=== PATIENT | female | born 1985 | race Two or more races ===

== ENCOUNTER 2021-12-26 11:45 | Inpatient (IN) | payer MEDICAID ==
[~2021-12-26] VITALS: Ht 172.7 cm; Wt 102.7 kg
[2021-12-26] MEDS ORDERED: MORPHINE SULFATE 4 MG/ML SYR/VIAL IV ONE (12:00)
[2021-12-26] MEDS ORDERED: ONDANSETRON HCL 4 MG/2 ML VIAL IV ONE (12:00)
[2021-12-26] MEDS ORDERED: PANTOPRAZOLE 40 MG/10 ML VIAL INJ IV ONE ×2 (12:00→17:15)
[2021-12-26] MEDS ORDERED: SODIUM CHLORIDE 0.9% 1,000 ML IVB ONE (12:00)
[2021-12-26 12:34] LABS: Basophils # (auto) 0.1 10 ^3/uL (0-0.2); Basophils % (auto) 1.3 % (0.0-2.0); Eosinophils # (auto) 0 10 ^3/uL (0-0.8); Eosinophils % (auto) 0.3 % (0.0-7.0); Hematocrit 41.6 % (36.0-46.0); Lymphocytes # (auto) 1.7 10 ^3/uL (0.4-5.4); Lymphocytes % (auto) 18.4 % (10.0-50.0); Mean Corpuscular Hemoglobin 31.2 pg (28.0-32.0); Mean Corpuscular Hgb Conc. 33.8 g/dL (32.0-36.0); Mean Corpuscular Volume 92.3 fL (80.0-100.0); Monocytes # (auto) 0.5 10 ^3/uL (0-1.3); Monocytes % (auto) 5.5 % (0.0-12.0); Neutrophils # (auto) 6.9 10 ^3/uL (1.6-8.6); Neutrophils % (auto) 74.5 % (37.0-80.0); Red Cell Distribution Width 13.3 % (11.8-14.3); White Blood Cell 9.2 10^3/uL (4.4-10.8)
[2021-12-26 12:51] LABS: Urine Bacteria FEW /hpf (None Seen); Urine Blood Negative /uL (Negative); Urine Mucus FEW (None Seen); Urine WBC 4 /hpf (0 - 5)
[2021-12-26] MEDS ORDERED: cefTRIAXone 1GM/50ML D5W 50 ML IV ONE (13:15)
[2021-12-26 14:08] LABS: INR 1.03 (0.9-1.15); Partial Thromboplastin Time 29.8 sec (24.6-33.4)
[2021-12-26 14:13] LABS: Calcium 9.2 mg/dL (8.5-10.1); Potassium 4.1 mmol/L (3.5-5.1)
[2021-12-26 14:16] LABS: BUN/Creatinine Ratio 9.2; Bilirubin, Total 0.3 mg/dL (0.2-1.0)
[2021-12-26] MEDS ORDERED: SODIUM CHLORIDE 0.9% 1,000 ML IV ONE (17:15)
[2021-12-26 17:48] LABS: Cholesterol 159 mg/dL (< 200)
[2021-12-26 17:51] LABS: HDL Cholesterol 48 mg/dL (40-59); LDL Cholesterol 116 mg/dL (< 100); Triglycerides 81 mg/dL (< 150)
[2021-12-26] MEDS: MORPHINE SULFATE INJ 2 MG/ml SYRG IV PRN ×2 (18:09→20:18)
[2021-12-26] MEDS ORDERED: ACETAMINOPHEN 325 MG TAB PO ONE (18:33)
[2021-12-26] MEDS: ACETAMINOPHEN 325 MG TAB PO PRN (18:34)
[2021-12-26] MEDS: ONDANSETRON HCL 4 MG/2 ML VIAL IV PRN (20:17)
[2021-12-26] MEDS ORDERED: LOS25T PO (22:30)
[2021-12-26] MEDS ORDERED: ESCI-28 PO (22:30)
[2021-12-26] MEDS ORDERED: ESCI10TA PO (22:30)
[2021-12-27] VITALS (7 sets, daily range): BP systolic 122–137; BP diastolic 68–85
[2021-12-27] MEDS: ACETAMINOPHEN 325 MG TAB PO PRN ×3 (01:49→17:07)
[2021-12-27 08:50] LABS: Basophils # (auto) 0.1 10 ^3/uL (0-0.2); Eosinophils # (auto) 0.1 10 ^3/uL (0-0.8); Eosinophils % (auto) 1.3 % (0.0-7.0); Hematocrit 38.2 % (36.0-46.0); Hemoglobin 12.8 g/dL (12.2-16.2); Lymphocytes % (auto) 32.1 % (10.0-50.0); Mean Corpuscular Hemoglobin 30.8 pg (28.0-32.0); Mean Corpuscular Hgb Conc. 33.4 g/dL (32.0-36.0); Mean Corpuscular Volume 92.3 fL (80.0-100.0); Monocytes # (auto) 0.3 10 ^3/uL (0-1.3); Monocytes % (auto) 4.4 % (0.0-12.0); Neutrophils # (auto) 3.8 10 ^3/uL (1.6-8.6); Neutrophils % (auto) 61.2 % (37.0-80.0); Nucleated Red Blood Cells % 0.1 %; Red Blood Cells 4.14 10^6/uL (4.0-5.20); White Blood Cell 6.2 10^3/uL (4.4-10.8)
[2021-12-27] MEDS: cefTRIAXone 1GM/50ML D5W 50 ML IV SCH (08:50)
[2021-12-27] MEDS: MORPHINE SULFATE INJ 2 MG/ml SYRG IV PRN ×2 (08:51→20:24)
[2021-12-27] MEDS: PANTOPRAZOLE 40 MG/10 ML VIAL INJ IV SCH (08:51)
[2021-12-27 09:11] LABS: Potassium 3.9 mmol/L (3.5-5.1)
[2021-12-27 09:23] LABS: Albumin 3.5 g/dL (3.4-5.0); BUN/Creatinine Ratio 9.1; Bilirubin, Total 0.4 mg/dL (0.2-1.0); Calcium 8.5 mg/dL (8.5-10.1); Total Protein 6.8 g/dL (6.4-8.2)
[2021-12-27] MEDS: CITALOPRAM HYDROBR 20 MG TAB PO SCH (11:45)
[2021-12-27] MEDS: ONDANSETRON HCL 4 MG/2 ML VIAL IV PRN (20:22)
[2021-12-28 05:01] VITALS: BP 116/70
[2021-12-28 08:00] VITALS: BP 141/78
[2021-12-28 09:06] VITALS: BP 141/78
[2021-12-28] MEDS: cefTRIAXone 1GM/50ML D5W 50 ML IV SCH (09:49)
[2021-12-28] MEDS: PANTOPRAZOLE 40 MG/10 ML VIAL INJ IV SCH (09:49)
[2021-12-28] MEDS: MORPHINE SULFATE INJ 2 MG/ml SYRG IV PRN ×2 (09:52→20:44)
[2021-12-28] MEDS: CITALOPRAM HYDROBR 20 MG TAB PO SCH (09:53)
[2021-12-28] MEDS ORDERED: ceFAZolin 1GM/50ML 100 ML IV ONE (12:00)
[2021-12-28 13:25] VITALS: BP 147/73
[2021-12-28] MEDS ORDERED: POVIDONE IODINE 10 % TOPICAL OINT 30GM TOP ONE (13:46)
[2021-12-28] MEDS ORDERED: EPINEPHrine HCL 1 MG/1 ML AMP ONE (13:46)
[2021-12-28] MEDS ORDERED: BUPIVACAINE 0.25% INJ 50ML VIAL ONE (13:46)
[2021-12-28] MEDS ORDERED: fentaNYL CITRATE 100 MCG/2 ML VL ONE (14:14)
[2021-12-28] MEDS ORDERED: MIDAZOLAM HCL 2MG/2ML 2ml VIAL (1mg/ml) ONE (14:14)
[2021-12-28] MEDS ORDERED: MEPERIDINE HCL (25 MG/ML) 1ML VIAL ONE (14:15)
[2021-12-28] MEDS ORDERED: DexAMETHasone SOD PHOS 10MG/1ML VIAL INJ ONE (14:18)
[2021-12-28] MEDS ORDERED: ONDANSETRON HCL 4 MG/2 ML VIAL ONE (14:26)
[2021-12-28] MEDS ORDERED: PROPOFOL 10 MG/ML 20 ML IV ONE (14:26)
[2021-12-28] MEDS ORDERED: HYDROmorphone HCL 2 MG/ML VL/or syr ONE (15:11)
[2021-12-28] MEDS ORDERED: HYDROmorphone HCL 2 MG/ML VL/or syr IV ONE ×2 (15:14→15:25)
[2021-12-28] MEDS ORDERED: HYDROmorphone HCL 2 MG/ML VL/or syr IV PRN (15:15)
[2021-12-28] MEDS ORDERED: ONDANSETRON HCL 4 MG/2 ML VIAL IV PRN (15:15)
[2021-12-28] MEDS ORDERED: ePHEDrine SULFATE 50 MG/ML AMP IV PRN (15:15)
[2021-12-28] MEDS ORDERED: KETOROLAC TROMETH 30 MG/ML 1ML VIAL IV ONE (15:15)
[2021-12-28] MEDS ORDERED: MORPHINE SULFATE 4 MG/ML SYR/VIAL IV PRN (15:15)
[2021-12-28] MEDS ORDERED: LABETALOL HCL 5 MG/ML 4ML SYRINGE IV PRN (15:15)
[2021-12-28] MEDS ORDERED: MIDAZOLAM HCL 2MG/2ML 2ml VIAL (1mg/ml) IV PRN (15:15)
[2021-12-28] MEDS: metroNIDAZOLE 500MG/100ML 100 ML IV SCH ×2 (17:03→21:54)
[2021-12-28] MEDS: ONDANSETRON HCL 4 MG/2 ML VIAL IV PRN (20:44)
[2021-12-28 22:03] VITALS: BP 117/61
[2021-12-29] VITALS (7 sets, daily range): BP systolic 111–141; BP diastolic 63–78
[2021-12-29 06:07] LABS: Basophils # (auto) 0 10 ^3/uL (0-0.2); Basophils % (auto) 0.1 % (0.0-2.0); Eosinophils # (auto) 0 10 ^3/uL (0-0.8); Hematocrit 38.7 % (36.0-46.0); Hemoglobin 13.1 g/dL (12.2-16.2); Lymphocytes # (auto) 0.8 10 ^3/uL (0.4-5.4); Lymphocytes % (auto) 6.7 % (10.0-50.0); Mean Corpuscular Hemoglobin 30.6 pg (28.0-32.0); Mean Corpuscular Hgb Conc. 33.8 g/dL (32.0-36.0); Mean Corpuscular Volume 90.5 fL (80.0-100.0); Monocytes # (auto) 0.3 10 ^3/uL (0-1.3); Monocytes % (auto) 2.3 % (0.0-12.0); Neutrophils % (auto) 90.9 % (37.0-80.0); Nucleated Red Blood Cells % 0.1 %; Red Blood Cells 4.27 10^6/uL (4.0-5.20); Red Cell Distribution Width 12.3 % (11.8-14.3); White Blood Cell 12.1 10^3/uL (4.4-10.8)
[2021-12-29] MEDS: metroNIDAZOLE 500MG/100ML 100 ML IV SCH ×3 (06:59→22:31)
[2021-12-29] MEDS: ONDANSETRON HCL 4 MG/2 ML VIAL IV PRN (07:00)
[2021-12-29] MEDS: MORPHINE SULFATE INJ 2 MG/ml SYRG IV PRN ×2 (07:01→22:31)
[2021-12-29] MEDS: CITALOPRAM HYDROBR 20 MG TAB PO SCH (10:09)
[2021-12-29] MEDS: cefTRIAXone 1GM/50ML D5W 50 ML IV SCH (10:09)
[2021-12-29] MEDS: PANTOPRAZOLE 40 MG/10 ML VIAL INJ IV SCH (10:09)
[2021-12-29] MEDS: ACETAMINOPHEN 325 MG TAB PO PRN (18:36)
[2021-12-30 05:00] VITALS: BP 109/55
[2021-12-30] MEDS: metroNIDAZOLE 500MG/100ML 100 ML IV SCH ×3 (05:15→21:45)
[2021-12-30 08:00] VITALS: BP 118/69
[2021-12-30] MEDS: cefTRIAXone 1GM/50ML D5W 50 ML IV SCH (08:33)
[2021-12-30 08:51] VITALS: BP 118/69
[2021-12-30] MEDS: CITALOPRAM HYDROBR 20 MG TAB PO SCH (08:54)
[2021-12-30] MEDS: PANTOPRAZOLE 40 MG/10 ML VIAL INJ IV SCH (08:54)
[2021-12-30 09:00] VITALS: BP 118/69
[2021-12-30] MEDS ORDERED: NEOSTIGMINE 1 MG/ML INJ (10mg/10ML VIAL) IV ONE (12:16)
[2021-12-30] MEDS ORDERED: ROCURONIUM 10MG/ML 10ML VIAL IV ONE (12:16)
[2021-12-30] MEDS ORDERED: GLYCOPYRROLATE 0.2 MG/ML 1ML VIAL IV ONE (12:16)
[2021-12-30 13:00] VITALS: BP_SYST 124; BP_SYST 125; BP_DIAS 67; BP_DIAS 75
[2021-12-30] MEDS: ACETAMINOPHEN 325 MG TAB PO PRN (21:45)
[2021-12-30 22:00] VITALS: BP 148/86
[2021-12-31 05:00] VITALS: BP 114/71
[2021-12-31] MEDS: metroNIDAZOLE 500MG/100ML 100 ML IV SCH ×3 (05:32→14:32)
[2021-12-31] MEDS ORDERED: HYDR-4902 PO (08:27)
[2021-12-31] MEDS ORDERED: METR500T PO (08:27)
[2021-12-31] MEDS ORDERED: LEVO500T31 PO (08:27)
[2021-12-31 08:57] VITALS: BP 129/73
[2021-12-31] MEDS: cefTRIAXone 1GM/50ML D5W 50 ML IV SCH (09:47)
[2021-12-31] MEDS: PANTOPRAZOLE 40 MG/10 ML VIAL INJ IV SCH (09:47)
[2021-12-31] MEDS: CITALOPRAM HYDROBR 20 MG TAB PO SCH (09:47)
[2021-12-31 10:34] VITALS: BP 129/73
[2021-12-31 13:01] VITALS: BP 141/72
== END 2021-12-31 15:00 | disposition home or self-care (01) | DRG 263 ==
LOC: ER 11:45 → OVERFLOW 16:59 → WEST WING 12-27 01:23
PROVIDERS: ADMIT Registered Nurse; ATTEND Family Medicine
PROC: 0FT44ZZ Resection of Gallbladder, Percutaneous Endoscopic Approach (ICD-10-PCS; principal; 2021-12-28 13:58)
DX: K80.60 Calculus of gallbladder and bile duct with cholecystitis, unspecified, without obstruction (principal); E66.01 Morbid (severe) obesity due to excess calories; N39.0 Urinary tract infection, site not specified; R80.9 Proteinuria, unspecified; F41.9 Anxiety disorder, unspecified; I10 Essential (primary) hypertension; Z68.32 Body mass index [BMI] 32.0-32.9, adult; Z82.49 Family history of ischemic heart disease and other diseases of the circulatory system; Z83.3 Family history of diabetes mellitus; Z20.822 Contact with and (suspected) exposure to COVID-19
CPT/HCPCS: 36415; 76705; 78226; 80053; 80061; 81001; 81025; 82150; 82247; 83690; 84702; 85025; 85610; 85730; 86850; 86900; 86901; 96365; 96375; 97116; 97163; 97530; C9113; G0378; J0171; J0690; J0696; J1100; J2250; J2405; J2704; J3490

== ENCOUNTER 2022-03-14 12:18 | Emergency (ER) | payer MEDICAID ==
[~2022-03-14] VITALS: Ht 172.7 cm; Wt 82.0 kg
[~2022-03-14 12:18] MED LIST: ESCI-28 PO; ESCI10TA PO; HYDR-4902 PO; LEVO500T31 PO; LOS25T PO; METR500T PO
[2022-03-14 12:24] VITALS: BP 157/91
[2022-03-14 13:18] LABS: Basophils # (auto) 0.1 10 ^3/uL (0-0.2); Basophils % (auto) 0.8 % (0.0-2.0); Eosinophils # (auto) 0.2 10 ^3/uL (0-0.8); Eosinophils % (auto) 3.4 % (0.0-7.0); Hematocrit 45.1 % (36.0-46.0); Lymphocytes # (auto) 1.6 10 ^3/uL (0.4-5.4); Lymphocytes % (auto) 23.5 % (10.0-50.0); Mean Corpuscular Hemoglobin 30.6 pg (28.0-32.0); Mean Corpuscular Hgb Conc. 33.2 g/dL (32.0-36.0); Mean Corpuscular Volume 92.2 fL (80.0-100.0); Monocytes # (auto) 0.6 10 ^3/uL (0-1.3); Monocytes % (auto) 8.6 % (0.0-12.0); Neutrophils # (auto) 4.2 10 ^3/uL (1.6-8.6); Neutrophils % (auto) 63.7 % (37.0-80.0); Red Blood Cells 4.89 10^6/uL (4.0-5.20); Red Cell Distribution Width 13.5 % (11.8-14.3); White Blood Cell 6.6 10^3/uL (4.4-10.8)
[2022-03-14 13:24] LABS: Urine Bacteria MOD /hpf (None Seen); Urine Blood Negative /uL (Negative); Urine Hyaline Cast FEW /lpf (0 - 2); Urine Mucus FEW (None Seen); Urine Specific Gravity 1.023 (1.001-1.035); Urine WBC 2 /hpf (0 - 5)
[2022-03-14 13:32] LABS: Albumin 3.9 g/dL (3.4-5.0); Magnesium 2.1 mg/dL (1.6-2.6); Potassium 4.2 mmol/L (3.5-5.1)
[2022-03-14 13:35] LABS: BUN/Creatinine Ratio 8.3; Bilirubin, Total 0.3 mg/dL (0.2-1.0); Total Protein 8.4 g/dL (6.4-8.2)
[2022-03-14] MEDS ORDERED: AZIT1POW PO (14:24)
== END 2022-03-14 15:11 | disposition home or self-care (01) ==
LOC: ER 12:18
DX: R07.89 Other chest pain (principal); J20.9 Acute bronchitis, unspecified; I25.2 Old myocardial infarction; Z20.822 Contact with and (suspected) exposure to COVID-19; Z90.49 Acquired absence of other specified parts of digestive tract; Z32.02 Encounter for pregnancy test, result negative
CPT/HCPCS: 36415; 71045; 80053; 81001; 81025; 83735; 84484; 85025; 93005

== ENCOUNTER 2022-12-30 00:45 | Emergency (ER) | payer SELFPAY ==
[~2022-12-30] VITALS: Ht 172.7 cm; Wt 86.3 kg
[~2022-12-30 00:45] MED LIST changes: +AZIT1POW PO; -ESCI-28 PO; +ESCI1TAB36 PO
[2022-12-30 01:10] LABS: Basophils # (auto) 0.1 10 ^3/uL (0-0.2); Basophils % (auto) 0.8 % (0.0-2.0); Eosinophils # (auto) 0.1 10 ^3/uL (0-0.8); Eosinophils % (auto) 1.4 % (0.0-7.0); Hematocrit 39.3 % (36.0-46.0); Hemoglobin 13.5 g/dL (12.2-16.2); Lymphocytes % (auto) 30.3 % (10.0-50.0); Mean Corpuscular Hemoglobin 31.6 pg (28.0-32.0); Mean Corpuscular Hgb Conc. 34.4 g/dL (32.0-36.0); Mean Corpuscular Volume 91.9 fL (80.0-100.0); Monocytes # (auto) 0.6 10 ^3/uL (0-1.3); Monocytes % (auto) 5.8 % (0.0-12.0); Neutrophils # (auto) 6.1 10 ^3/uL (1.6-8.6); Neutrophils % (auto) 61.7 % (37.0-80.0); Nucleated Red Blood Cells % 0.1 %; Red Blood Cells 4.28 10^6/uL (4.0-5.20); Red Cell Distribution Width 13.1 % (11.8-14.3)
[2022-12-30 01:25] LABS: Albumin 3.8 g/dL (3.4-5.0); Calcium 8.8 mg/dL (8.5-10.1); Magnesium 2.1 mg/dL (1.6-2.6); Potassium 3.3 mmol/L (3.5-5.1)
[2022-12-30 01:27] LABS: Bilirubin, Total 0.2 mg/dL (0.2-1.0); Total Protein 7.9 g/dL (6.4-8.2)
[2022-12-30 02:04] LABS: Urine Bacteria MOD /hpf (None Seen); Urine Blood Negative /uL (Negative); Urine Hyaline Cast FEW /lpf (0 - 2); Urine Mucus FEW (None Seen); Urine Specific Gravity 1.027 (1.001-1.035); Urine WBC 3 /hpf (0 - 5)
[2022-12-30 04:51] VITALS: TEMP 98
[2022-12-30] MEDS ORDERED: LORazepam 0.5 MG TAB PO ONE (07:00)
[2022-12-30] MEDS ORDERED: HYDR50CA PO (07:13)
[2022-12-30 07:33] VITALS: BP 130/78; PULSE 61; RESP 18
[2022-12-30 07:34] VITALS: O2SAT 98
== END 2022-12-30 07:35 | disposition home or self-care (01) ==
LOC: ER 00:45
DX: R07.89 Other chest pain (principal); F41.9 Anxiety disorder, unspecified; I10 Essential (primary) hypertension; Z79.899 Other long term (current) drug therapy; Z90.49 Acquired absence of other specified parts of digestive tract
CPT/HCPCS: 36415; 71045; 80053; 81001; 82962; 83735; 84484; 85025